=== PATIENT | male | born 1985 | race African-American/Black ===

== ENCOUNTER 2024-06-30 07:05 | Emergency (ER) | payer BC ==
[~2024-06-30] VITALS: Ht 170.2 cm; Wt 109.0 kg
[2024-06-30 07:11] VITALS: O2SAT 97
[2024-06-30] MEDS ORDERED: ONDA-239 PO (08:42)
[2024-06-30 08:44] VITALS: BP 157/109; PULSE 87; RESP 15; TEMP 36.89184; O2SAT 99
[2024-06-30] MEDS: ACETAMINOPHEN 325MG TABLET PO ONE (08:55)
[2024-06-30] MEDS ORDERED: TAM75 MT (09:25)
== END 2024-06-30 09:37 | disposition home or self-care (01) ==
LOC: ER 07:25
DX: B34.9 Viral infection, unspecified (principal); Z20.822 Contact with and (suspected) exposure to COVID-19
CPT/HCPCS: 71045; 87426; 87804; 99284